=== PATIENT | male | born 1980 | race Caucasian/White ===

== ENCOUNTER 2018-05-10 01:05 | Emergency (ER) | payer OTHER ==
--- NOTE | 2018-05-10 01:30 | ED ---
Skin Complaint - HPI Summary HPI Summary: This is scribe Wayne Tuttle documenting for attending Bernie Khan MD. This patient is a 38 old M presenting to [facility] with a chief complaint of a skin complaint since the last 2 weeks. There are bumps bilaterally on sides of his spine, L side greater than the right. He reports that they are increasing in size and number. Patient reports itchiness which is aggravated at night. Patient denies any rashes in arms, hands, or anywhere else. I, Dr. Khan, personally performed the services described in this documentation as scribed in my presence and it is both accurate and complete. - History of Current Complaint Chief Complaint: EDRashSkinAbscess Time Seen by Provider: 05/10/18 01:19 Stated Complaint: GENERAL ILLNESS Hx Obtained From: Patient Onset/Duration: Started Weeks Ago - 2 weeks ago Skin Exposure Onset/Duration: Weeks Ago - started 2 weeks ago Timing: Constant Pain Intensity: 0 Pain Scale Used: 0-10 Numeric Skin Location: Other: - bilaterally on sides of his spine, L side greater than the right Character: Raised Aggravating Symptom(s): Other: - Leaning back at night - Allergy/Home Medications Allergies/Adverse Reactions: Allergies Allergy/AdvReac Type Severity Reaction Status Date / Time No Known Allergies Allergy Verified 05/10/18 01:09 PMH/Surg Hx/FS Hx/Imm Hx Neurological History: Reports: Hx Headaches, Other Neuro Impairments/Disorders - Traumatic Brain Injury Psychiatric History: Reports: Hx Post Traumatic Stress Disorder - Immunization History Date of Tetanus Vaccine: unk Date of Influenza Vaccine: unk Infectious Disease History: No Infectious Disease History: Denies: Traveled Outside the [place] in Last 30 Days - Family History Known Family History: Negative: Cardiac Disease, Hypertension, Diabetes - Social History Alcohol Use: None Substance Use Type: Reports: None Smoking Status (MU): Heavy Every Day Tobacco Smoker Review of Systems Negative: Fever Positive: Rash - bilaterally on sides of his spine, L side greater than the right, Other - itchiness aggravated at night All Other Systems Reviewed And Are Negative: Yes Physical Exam - Summary Physical Exam Summary: VITAL SIGNS: Reviewed. GENERAL: Patient is a well-developed and nourished MALE who is lying comfortable in the stretcher. Patient is not in any acute respiratory distress. HEAD AND FACE: No signs of trauma. No ecchymosis, hematomas or skull depressions. No sinus tenderness. EYES: PERRLA, EOMI x 2, No injected conjunctiva, no nystagmus. EARS: Hearing grossly intact. Ear canals and tympanic membranes are within normal limits. MOUTH: Oropharynx within normal limits. NECK: Supple, trachea is midline, no adenopathy, no JVD, no carotid bruit, no c- spine tenderness, neck with full ROM. CHEST: Symmetric, no tenderness at palpation LUNGS: Clear to auscultation bilaterally. No wheezing or crackles. CVS: Regular rate and rhythm, S1 and S2 present, no murmurs or gallops appreciated. ABDOMEN: Soft, non-tender. No signs of distention. No rebound no guarding, and no masses palpated. Bowel sounds are normal. EXTREMITIES: FROM in all major joints, no edema, no cyanosis or clubbing. NEURO: Alert and oriented x 3. No acute neurological deficits. Speech is normal and follows commands. SKIN: 1 inch diameter raised skin area with redness, mildly scaly over the lower back. Most likely seems like a ringworm Triage Information Reviewed: Yes Vital Signs On Initial Exam: Initial Vitals Temp Pulse Resp BP Pulse Ox 97.8 F 74 20 140/85 96 05/10/18 01:07 05/10/18 01:07 05/10/18 01:07 05/10/18 01:07 05/10/18 01:07 Vital Signs Reviewed: Yes Diagnostics - Vital Signs Vital Signs Temp Pulse Resp BP Pulse Ox 05/10/18 01:07 97.8 F 74 20 140/85 96 - Laboratory Lab Statement: Any lab studies that have been ordered have been reviewed, and results considered in the medical decision making process. Re-Evaluation - Re-Evaluation 1 Re-Evaluation Time: 01:44 Comment: Physician will observe patient until 06:00 for OD. Course/Dx - Course Assessment/Plan: Patient presented with a rash on his lower back. Most likely seems like a ringworm. - Diagnoses Provider Diagnoses: Ringworm Discharge - Sign-Out/Discharge Documenting (check all that apply): Patient Departure - D/C - Discharge Plan Condition: Stable Disposition: HOME Patient Education Materials: Skin Yeast Infection (ED) Referrals: No Primary Care Phys,NOPCP [Primary Care Provider] - (Follow up with Primary Care Provider in 1-2 days.) Additional Instructions: Please use Lotrimin twice a day. RETURN TO THE EMERGENCY DEPARTMENT FOR CHANGING OR WORSENING SYMPTOMS. FOLLOW UP WITH PCP IN 1-2 DAYS.
[2018-05-10 01:56] VITALS: BP 131/69
[2018-05-10] MEDS ORDERED: Triamcinolone 0.5% OINT * 15 GM TUBE TOPICAL SCH (02:00)
[2018-05-10] MEDS ORDERED: Clotrimazole 1% CREAM* 30 GM TOPICAL SCH (02:00)
== END 2018-05-10 01:55 | disposition home or self-care (01) ==
LOC: ED 01:05
DX: B35.4 Tinea corporis (principal); F17.200 Nicotine dependence, unspecified, uncomplicated
CPT/HCPCS: 99282; A9270-GY